=== PATIENT | male | born 1990 | race Caucasian/White ===

== ENCOUNTER 2017-12-07 11:08 | Emergency (ER) | payer OTHER ==
[~2017-12-07] VITALS: Ht 170.2 cm; Wt 97.1 kg
[~2017-12-07 11:08] MED LIST: FLEXERIL PO; NORCO 5-325 TA1 EACH PO; WELLBUTRIN SR150 MG PO
[2017-12-07] MEDS ORDERED: FLEXERIL PO (11:26)
[2017-12-07] MEDS ORDERED: SERTRALINE HCL50 MG PO (11:26)
[2017-12-07 12:17] LABS: HEMOGLOBIN 15.8 gm/dL (14.0-18.0); MCH 30.6 pg (26.0-34.0); MCHC 34.4 g/dL (28.0-37.0); MPV 8.7 fl. (7.2-11.1); NUCLEATED RBCS 0 /100WBC; PLATELET COUNT* 286 thou/uL (150-400); RBC 5.17 mil/uL (4.50-6.00); RDW-CV 13.8 % (10.5-14.5); WBC 13.4 thou/uL (4.0-11.0)
[2017-12-07 12:41] LABS: ABSOLUTE LYMPHOCYTES 2.3 thou/uL (0.8-5.3); ABSOLUTE MONOCYTES 0.3 thou/uL (0.0-1.2); ABSOLUTE NEUTROPHILS 10.9 thou/uL (1.6-8.1); ANISOCYTOSIS 1+; LARGE PLATELETS RARE; PLATELET ESTIMATE ADEQUATE; POIKILOCYTOSIS 1+
[2017-12-07 12:45] LABS: CALCIUM 9.7 mg/dL (8.5-10.1); CREATININE 0.9 mg/dL (0.6-1.3)
[2017-12-07 12:49] LABS: ALBUMIN 4.3 g/dL (3.4-5.0); TOTAL BILIRUBIN 0.3 mg/dL (<0.1-1.0); TOTAL PROTEIN 8.7 g/dL (6.4-8.2)
[2017-12-07] MEDS ORDERED: ZOFRAN4 MG PO (13:12)
[2017-12-07 13:24] VITALS: BP 127/73
== END 2017-12-07 13:32 | disposition home or self-care (01) ==
LOC: M.ERS 11:08
PROVIDERS: Emergency Medicine
DX: R11.2 Nausea with vomiting, unspecified (principal); F41.9 Anxiety disorder, unspecified; Z88.1 Allergy status to other antibiotic agents; F10.10 Alcohol abuse, uncomplicated

== ENCOUNTER 2021-05-07 18:13 | Emergency (ER) | payer OTHER ==
[~2021-05-07] VITALS: Ht 170.2 cm; Wt 108.0 kg
[~2021-05-07 18:13] MED LIST changes: +SERTRALINE HCL50 MG PO; +ZOFRAN4 MG PO
[2021-05-07] MEDS ORDERED: WELLBUTRIN SR150 MG PO (18:30)
[2021-05-07] MEDS ORDERED: HYDROXYZINE HCL25 M2 PO (18:32)
[2021-05-07] MEDS ORDERED: [UNRECOGNIZED DRUG - OTHER] PO (18:32)
[2021-05-07] MEDS ORDERED: ESCITALOPRA5 MG/5 ML PO (18:32)
[2021-05-07 19:16] LABS: INFLUENZA A ANTIGEN Negative (Negative); INFLUENZA B ANTIGEN Negative (Negative)
[2021-05-07 19:44] VITALS: BP 140/88
== END 2021-05-07 19:50 | disposition home or self-care (01) ==
LOC: M.ERS 18:13
PROVIDERS: Physician Assistant
DX: R51.9 Headache, unspecified (principal); Z20.822 Contact with and (suspected) exposure to COVID-19; Z88.2 Allergy status to sulfonamides; Z79.899 Other long term (current) drug therapy